=== PATIENT | female | born 1980 | race Two or more races ===

== ENCOUNTER 2019-09-03 07:25 | Outpatient (CLI) | payer OTHER | END 2019-09-03 07:30 | disposition home or self-care (01) | LOC: LAB 07:25 | DX: D50.8 Other iron deficiency anemias (principal); N39.0 Urinary tract infection, site not specified; E07.89 Other specified disorders of thyroid; I11.9 Hypertensive heart disease without heart failure; E78.3 Hyperchylomicronemia; E55.9 Vitamin D deficiency, unspecified ==

== ENCOUNTER 2019-09-03 08:22 | Outpatient (CLI) | payer OTHER | END 2019-09-03 08:40 | disposition home or self-care (01) | LOC: MAMO-SONO 08:22 | DX: Z12.31 Encounter for screening mammogram for malignant neoplasm of breast (principal); Z87.898 Personal history of other specified conditions ==

== ENCOUNTER 2021-10-19 07:12 | Outpatient (CLI) | payer OTHER | END 2021-10-19 15:08 | disposition home or self-care (01) | LOC: TOM 07:12 | PROVIDERS: ATTEND Radiology Diagnostic Radiology | DX: N60.01 Solitary cyst of right breast (principal); Z12.31 Encounter for screening mammogram for malignant neoplasm of breast; R10.84 Generalized abdominal pain; N60.11 Diffuse cystic mastopathy of right breast; N60.12 Diffuse cystic mastopathy of left breast ==

== ENCOUNTER 2022-07-10 07:10 | Outpatient (CLI) | payer OTHER | END 2022-07-10 16:08 | disposition home or self-care (01) | LOC: SONOGRAMA 07:10 | PROVIDERS: ATTEND Obstetrics & Gynecology | DX: R10.84 Generalized abdominal pain (principal) ==

== ENCOUNTER 2024-01-16 07:13 | Outpatient (CLI) | payer OTHER | END 2024-01-16 15:49 | disposition home or self-care (01) | LOC: TOM 07:13 | PROVIDERS: ATTEND Radiology Diagnostic Radiology | DX: R10.84 Generalized abdominal pain (principal); R06.02 Shortness of breath ==

== ENCOUNTER 2024-09-29 07:05 | Outpatient (CLI) | payer OTHER | END 2024-09-29 15:16 | disposition home or self-care (01) | LOC: MAMO-SONO 07:05 | PROVIDERS: ATTEND Radiology Diagnostic Radiology | DX: Z12.31 Encounter for screening mammogram for malignant neoplasm of breast (principal) ==